=== PATIENT | male | born 1955 | race Caucasian/White ===

== ENCOUNTER 2020-12-15 11:24 | Emergency (ER) | payer OTHER ==
[~2020-12-15] VITALS: Ht 177.8 cm; Wt 83.7 kg
--- NOTE | 2020-12-15 12:05 | NUR ---
PT REPORTED HX OF ABNORMAL EKG. EKG DONE, SHOWS R BBB; SHOWN TO ERP. PT STATES HE GOT UP TWICE AFTER HIS EPIDURAL PROCEDURE AND "PASSED OUT" ONCE, AND THEN FELT LIGHTHEADED AGAIN AND HAD N/V. SENT STRAIGHT TO ED. PT A&OX4 NOW, CONVERSING WITH AND STAFF, NO SIGNS OF DISTRESS.
[2020-12-15 12:41] LABS: BASOPHILS % (AUTO) 1 % (0-1); EOSINOPHILS % (AUTO) 0 % (1-7); LYMPHOCYTES % (AUTO) 5 % (22-44); MEAN CORPUSCULAR HEMOGLOBIN 32.8 pg (27.5-34.5); MEAN CORPUSCULAR HGB CONC 34.7 g/dL (33.2-36.2); MEAN PLATELET VOLUME 8.1 fL (7.4-10.4); MONOCYTES % (AUTO) 2 % (2-9); NEUTROPHILS % (AUTO) 92 % (42-75); PLATELET COUNT 221 x10^3/uL (130-400); RED BLOOD COUNT 4.76 x10^6/uL (4.38-5.82); RED CELL DISTRIBUTION WIDTH 13.3 % (9.4-14.8)
[2020-12-15 12:48] LABS: ALANINE AMINOTRANSFERASE 46 U/L (12-78); ALBUMIN 4.1 g/dL (3.4-5.0); ANION GAP 13 mmol/L (5-15); CHLORIDE 100 mmol/L (98-107); CREATININE 1.01 mg/dL (0.7-1.3)
[2020-12-15 12:51] LABS: ALKALINE PHOSPHATASE 60 U/L (45-117); BILIRUBIN,TOTAL 0.9 mg/dL (0.2-1.0); TOTAL PROTEIN 7.3 g/dL (6.4-8.2)
[2020-12-15] MEDS ORDERED: SODIUM CHLORIDE 0.9% 1,000ML IVBOLUS ONE (13:30)
[2020-12-15 14:00] VITALS: BP 149/83
--- NOTE | 2020-12-15 14:25 | NUR ---
D/C INSTRUCTIONS & F/U APPT RV'WD WITH PT, HE VERBALIZES UNDERSTANDING. AMBULATED OUT OF ED WITH WITHOUT DIFFICULTY.
== END 2020-12-15 14:26 | disposition home or self-care (01) ==
LOC: ED 12:48
DX: R55 Syncope and collapse (principal); R11.2 Nausea with vomiting, unspecified; I45.10 Unspecified right bundle-branch block; I10 Essential (primary) hypertension; E78.00 Pure hypercholesterolemia, unspecified
CPT/HCPCS: 36415; 80053; 85025; 93005; 96360; 99284; J7030